=== PATIENT | female | born 1970 | race Caucasian/White ===

== ENCOUNTER → 2018-07-10 | Outpatient (CLI) | payer MEDICAID ==
--- NOTE | 2018-07-10 14:40 | XR ---
Lumbosacral spine HISTORY: Sprain, pain 5 views of the lumbosacral spine and 6 images There is multilevel spondylosis. Rudimentary ribs present at T12. No evident spondylolysis or spondyl olisthesis. Loss of disc height present at the intervertebral levels. Sclerosis present in the production planning supervisor ior elements of the lower lumbar spine. IMPRESSION: Degenerative disc disease and facet arthropathy.
== END ==
LOC: RADXRMAIN 13:08
PROVIDERS: ATTEND Family Medicine
DX: M51.17 Intervertebral disc disorders with radiculopathy, lumbosacral region (principal); M46.97 Unspecified inflammatory spondylopathy, lumbosacral region
CPT/HCPCS: 72110

== ENCOUNTER → 2020-10-04 | Outpatient (CLI) | payer MEDICAID ==
--- NOTE | 2020-10-04 08:52 | US ---
EXAMINATION TYPE: US thyroid st tissue head/neck DATE OF EXAM: 10/04/2020 COMPARISON: NONE CLINICAL HISTORY: E05.90 hyperthyroidism. Grave's Disease, hyperthyroidism GLAND SIZE: Right Lobe: 4.6 x 1.8 x 2.0 cm Overall Parenchyma: homogenous Left Lobe: 4.0 x 1.5 x 1.6 cm Overall Parenchyma: homogeneous Isthmus Thickness: 0.5 cm NODULES RIGHT: # of nodules measured on right: 1 1. 0.9 X 1.0 x 0.8 cm cystic or almost completely cystic, anechoic nodule, which is taller than wid e, with lobulated or irregular margins, without echogenic foci. Prior size: no prior LEFT: # of nodules measured on left: 0 ISTHMUS: # of nodules measured in the isthmus: 0 Bilateral neck scanned, no evidence of lymphadenopathy. IMPRESSION: Nonspecific cystic nodule right thyroid lobe.
== END | disposition home or self-care (01) ==
LOC: RADUSWWP 08:06
PROVIDERS: ATTEND Internal Medicine
DX: E04.1 Nontoxic single thyroid nodule (principal); E05.90 Thyrotoxicosis, unspecified without thyrotoxic crisis or storm
CPT/HCPCS: 76536

== ENCOUNTER → 2021-03-19 | Outpatient (CLI) | payer MEDICAID ==
--- NOTE | 2021-03-22 08:39 | MM ---
Reason for exam: screening (asymptomatic). Baseline mammogram. History: Patient is postmenopausal. Physical Findings: Nurse did not find any significant physical abnormalities on exam. MG 3D Screening Mammo W/Cad Bilateral CC and MLO view(s) were taken. The breast tissue is heterogeneously dense. This may lower the sensitivity of mammography. No significant findings. ASSESSMENT: Benign, BI-RAD 2 RECOMMENDATION: Routine screening mammogram of both breasts in 1 year.
== END | disposition home or self-care (01) ==
LOC: RADMAMWWP 07:00
PROVIDERS: ATTEND Family Medicine
DX: Z12.31 Encounter for screening mammogram for malignant neoplasm of breast (principal)
CPT/HCPCS: 77063; 77067

== ENCOUNTER → 2021-07-13 | Outpatient (CLI) | payer MEDICAID, OTHER | END | disposition home or self-care (01) | LOC: LABWHC1 09:52 | PROVIDERS: ATTEND Emergency Medicine | DX: Z20.822 Contact with and (suspected) exposure to COVID-19 (principal) | CPT/HCPCS: 87635 ==

== ENCOUNTER → 2021-07-14 | Outpatient (CLI) | payer MEDICAID, OTHER | END | disposition home or self-care (01) | LOC: LABWHC1 10:25 | PROVIDERS: ATTEND Emergency Medicine | DX: Z20.822 Contact with and (suspected) exposure to COVID-19 (principal) | CPT/HCPCS: 87635 ==

== ENCOUNTER → 2021-12-12 | Outpatient (CLI) | payer MEDICAID ==
--- NOTE | 2021-12-12 13:59 | US ---
EXAMINATION TYPE: US thyroid st tissue head/neck DATE OF EXAM: 12/12/2021 COMPARISON: US 2019 CLINICAL HISTORY: E04.1 Right thyroid nodule. Thyroid nodule, patient on thyroid meds GLAND SIZE: Right Lobe: 5.1 x 1.5 x 2.0 cm Overall Parenchyma: homogenous Left Lobe: 4.2 x 1.5 x 1.3 cm Overall Parenchyma: homogeneous Isthmus Thickness: 0.4 cm NODULES RIGHT: # of nodules measured on right: 1 1. 1.0 X 1.1 x 1.1 cm, lower lateral, cyst with 0.4cm hyperechoic area, which is wider than tall, w ith smooth margins, without echogenic foci. Prior size: 0.9 x 1.0 x 0.8 cm LEFT: # of nodules measured on left: 0 ISTHMUS: # of nodules measured in the isthmus: 0 Bilateral neck scanned, no evidence of lymphadenopathy. IMPRESSION: Nonspecific lesion right thyroid lobe
== END | disposition home or self-care (01) ==
LOC: RADUSWWP 12:50
PROVIDERS: ATTEND Internal Medicine
DX: E04.1 Nontoxic single thyroid nodule (principal)
CPT/HCPCS: 76536

== ENCOUNTER → 2022-04-09 | Outpatient (CLI) | payer MEDICAID ==
--- NOTE | 2022-04-11 07:29 | MM ---
Reason for Exam: Screening (asymptomatic). Last screening mammogram was performed 12 month(s) ago. Patient History: Menarche at age 11. First Full-Term at age 26. Postmenopausal. Risk Values: Sana 5 year model risk: 1.2%. NCI Lifetime model risk: 9.6%. Prior Study Comparison: 03/19/2021 Bilateral Screening Mammogram, [facility]. Tissue Density: The breast tissue is heterogeneously dense. This may lower the sensitivity of mammography. Findings: Analyzed By CAD. No suspicious groups of microcalcifications, spiculated or lobular masses, architectural distortion or other secondary signs of malignancy are mammographically apparent. Overall Assessment: Benign, BI-RAD 2 Management: Screening Mammogram of both breasts in 1 year. A negative mammogram report should not preclude additional follow up of suspicious palpable abnormalities. Patient should continue monthly self breast exam. A clinical breast exam by your physician is recommended on an annual basis and results should be correlated with mammographic findings. Electronically signed and approved by: Tevin Venegas D.O. Radiologis
== END | disposition home or self-care (01) ==
LOC: RADMAMWWP 07:13
PROVIDERS: ATTEND Family Medicine
DX: Z12.31 Encounter for screening mammogram for malignant neoplasm of breast (principal)
CPT/HCPCS: 77063; 77067

== ENCOUNTER → 2023-05-07 | Outpatient (CLI) | payer MEDICAID ==
--- NOTE | 2023-05-20 12:22 | MM ---
Reason for Exam: Screening (asymptomatic). Last mammogram was performed 1 year(s) and 1 month(s) ago. Patient History: Menarche at age 11. First Full-Term at age 26. Postmenopausal. Risk Values: Sana 5 year model risk: 1.2%. NCI Lifetime model risk: 9.4%. Prior Study Comparison: 03/19/2021 Bilateral Screening Mammogram, [facility]. 04/09/2022 Bilateral MG 3D screening mammo w/cad, [facility]. Tissue Density: The breast tissue is heterogeneously dense. This may lower the sensitivity of mammography. Findings: Analyzed By CAD. There is no suspicious group of microcalcifications or new suspicious mass in either breast. Overall Assessment: Negative, BI-RAD 1 Management: Screening Mammogram of both breasts in [address] [facility] will attempt to contact patient to return for supplemental views and ultrasound if indicated. Patient should continue monthly self-breast exams. A clinical breast exam by your physician is recommended on an annual basis. This exam should not preclude additional follow-up of suspicious palpable abnormalities. Note on Sana scores and lifetime risk: 1. A Sana score greater than 3% is considered moderate risk. If this is the case, consider specialist referral to assess eligibility for a risk reducing agent. 2. If overall lifetime risk for the development of breast cancer is 20% or higher, the patient may qualify for future screening with alternating mammogram and breast MRI. Electronically signed and approved by: Iam Rojas DO
== END | disposition home or self-care (01) ==
LOC: RADMAMWWP 12:57
PROVIDERS: ATTEND Family Medicine
DX: Z12.31 Encounter for screening mammogram for malignant neoplasm of breast (principal); Z78.0 Asymptomatic menopausal state
CPT/HCPCS: 77063; 77067

== ENCOUNTER 2024-02-07 10:46 | Inpatient (IN) | payer BC ==
--- NOTE | 2024-02-07 11:20 | ED ---
General Adult HPI - General Chief complaint: Shortness of Breath Stated complaint: SOB Time Seen by Provider: 02/07/24 10:58 Source: patient, RN notes reviewed Mode of arrival: ambulatory Limitations: no limitations - History of Present Illness Initial comments: Patient is a pleasant 53-year-old female present to the emergency department with concerns for exertional dyspnea. Onset of symptoms was around a month ago. Symptoms are with exertion. Patient is currently symptom-free. Patient does not have associated chest discomfort. No congestion or upper respiratory symptoms. No fever. No leg edema or calf pain. No history of similar symptoms previously. - Related Data Home Medications Medication Instructions Recorded Confirmed Albuterol Inhaler [Ventolin Hfa 2 puff INHALATION RT-Q4H PRN 02/07/24 02/07/24 Inhaler] Cetirizine HCl [Zyrtec] 10 mg PO HS 02/07/24 02/07/24 Cyclobenzaprine [Flexeril] 10 mg PO Q8H PRN 02/07/24 02/07/24 Montelukast [Singulair] 10 mg PO DAILY 02/07/24 02/07/24 Allergies Allergy/AdvReac Type Severity Reaction Status Date / Time [place] And Derivatives Allergy Rash/Hives Verified 02/07/24 12:08 [[place]] strawberry Allergy Rash/Hives Verified 02/07/24 12:08 Review of Systems ROS Statement: Those systems with pertinent positive or pertinent negative responses have been documented in the HPI. ROS Other: All systems not noted in ROS Statement are negative. Constitutional: Denies: fever Eyes: Denies: eye pain ENT: Denies: ear pain Respiratory: Reports: as per HPI. Denies: cough Cardiovascular: Reports: dyspnea on exertion Endocrine: Denies: fatigue Gastrointestinal: Denies: abdominal pain Genitourinary: Denies: dysuria Musculoskeletal: Denies: back pain Past Medical History Additional Past Medical History / Comment(s): Back History of Any Multi-Drug Resistant Organisms: None Reported Past Surgical History: No Surgical Hx Reported Past Psychological History: No Psychological Hx Reported Smoking Status: Never smoker Past Alcohol Use History: None Reported Past Drug Use History: None Reported General Exam Limitations: no limitations General appearance: alert, in no apparent distress Head exam: Present: normocephalic Eye exam: Present: normal appearance Neck exam: Present: normal inspection Respiratory exam: Present: normal lung sounds bilaterally. Absent: chest wall tenderness Cardiovascular Exam: Present: regular rate, normal rhythm Expanded Peripheral pulses: 2+: Radial (R), Radial (L), Posterior Tibialis (R), Posterior Tibialis (L) GI/Abdominal exam: Present: soft. Absent: tenderness Extremities exam: Present: normal inspection. Absent: pedal edema, calf tenderness Neurological exam: Present: alert Psychiatric exam: Present: normal affect, normal mood Skin exam: Present: normal color Course Vital Signs 02/07/24 02/07/24 02/07/24 10:53 10:58 11:12 Temperature 98.4 F 98.9 F Pulse Rate 110 H 106 H Respiratory 22 18 20 Rate Blood Pressure 138/76 140/91 O2 Sat by Pulse 97 95 Oximetry 02/07/24 02/07/24 12:02 13:02 Temperature 97.8 F Pulse Rate 101 H 97 Respiratory 19 18 Rate Blood Pressure 118/87 134/84 O2 Sat by Pulse 94 L 94 L Oximetry EKG Findings - EKG Results: EKG: interpreted by ERMD (Nonspecific T waves), sinus rhythm, normal axis, normal QRS EKG shows: tachycardia Medical Decision Making - Medical Decision Making Was pt. sent in by a medical professional or institution (, PA, FISCAL ANALYST, urgent care, hospital, or senior living...) When possible be specific @ -Patient was sent over from urgent care Did you speak to anyone other than the patient for history (EMS, parent, family, police, friend...)? What history was obtained from this source @ -No Did you review nursing and triage notes (agree or disagree)? Why? @ -I reviewed and agree with nursing and triage notes Were old charts reviewed (outside hosp., previous admission, EMS record, old EKG, old radiological studies, urgent care reports/EKG's, senior living records)? Report findings @ -Chest x-ray reviewed from urgent care shows cardiomegaly however this was limited as it was seen on the patient's for Differential Diagnosis (chest pain, altered mental status, abdominal pain women, abdominal pain men, vaginal bleeding, weakness, fever, dyspnea, syncope, headache, dizziness, GI bleed, back pain, seizure, CVA, palpatations, mental health, musculoskeletal)? @ -Differential Dyspnea: Coronary syndrome, arrhythmia, tamponade, asthma, COPD, pulmonary embolism, pneumonia, pneumothorax, pulmonary effusion, anaphylaxis, diabetic ketoacidosis, flailed chest, pulmonary contusion, diaphragmatic rupture, anemia, neuromuscular, this is not meant to be an all-inclusive list. EKG interpreted by me (3pts min.). @ -As above X-rays interpreted by me (1pt min.). @ -Chest x-ray shows some cephalization and cardiomegaly CT interpreted by me (1pt min.). @ -The scan without obvious pulmonary embolism. There is concern for CHF and pulmonary arterial hypertension U/S interpreted by me (1pt. min.). @ -None done What testing was considered but not performed or refused? (CT, X-rays, U/S, labs)? Why? @ -None What meds were considered but not given or refused? Why? @ -None Did you discuss the management of the patient with other professionals (professionals i.e. , PA, FISCAL ANALYST, lab, RT, psych nurse, social science professor, website developer, teacher, bsa/aml compliance officer, test case developer)? Give summary @ -Case discussed with Dr. Clark who will admit covering Dr. Tilley Was smoking cessation discussed for >3mins.? @ -No Was critical care preformed (if so, how long)? @ -No Were there social determinants of health that impacted care today? How? (Homelessness, low income, unemployed, alcoholism, drug addiction, transportation, low edu. Level, literacy, decrease access to med. care, custodial, rehab)? @ -No Was there de-escalation of care discussed even if they declined (Discuss DNR or withdrawal of care, Hospice)? DNR status @ -No What co-morbidities impacted this encounter? (DM, HTN, Smoking, COPD, CAD, Cancer, CVA, ARF, Chemo, Hep., AIDS, mental health diagnosis, sleep apnea, morbid obesity)? @ -None Was patient admitted / discharged? Hospital course, mention meds given and route, prescriptions, significant lab abnormalities, going to OR and other perti nent info. @ -Patient presents with exertional dyspnea. Patient does have new onset CHF. Patient will be admitted with cardiac consult Undiagnosed new problem with uncertain prognosis? @ -No Drug Therapy requiring intensive monitoring for toxicity (Heparin, Nitro, Insulin, Cardizem)? @ -No Were any procedures done? @ -No Diagnosis/symptom? @ -CHF Acute, or Chronic, or Acute on Chronic? @ -Acute Uncomplicated (without systemic symptoms) or Complicated (systemic symptoms)? @ -Default Side effects of treatment? @ -No Exacerbation, Progression, or Severe Exacerbation? @ -New onset with progression Poses a threat to life or bodily function? How? (Chest pain, [place], [place], pneumonia, PE, COPD, DKA, ARF, appy, cholecystitis, CVA, Diverticulitis, Homicidal, Suicidal, threat to staff... and all critical care pts) @ -No - Lab Data Result diagrams: 02/07/24 11:18 02/07/24 11:18 Lab Results 02/07/24 02/07/24 02/07/24 Range/Units 11:18 11:18 11:18 WBC 7.8 (3.8-10.6) k/uL RBC 4.79 (3.80-5.40) m/uL Hgb 13.8 (11.4-16.0) gm/dL Hct 42.3 (34.0-46.0) % MCV 88.3 (80.0-100.0) fL MCH 28.8 (25.0-35.0) pg MCHC 32.6 (31.0-37.0) g/dL RDW 14.3 (11.5-15.5) % Plt Count 231 (150-450) k/uL MPV 8.3 Neutrophils % 74 % Lymphocytes % 16 % Monocytes % 7 % Eosinophils % 2 % Basophils % 1 % Neutrophils # 5.7 (1.3-7.7) k/uL Lymphocytes # 1.2 (1.0-4.8) k/uL Monocytes # 0.5 (0-1.0) k/uL Eosinophils # 0.1 (0-0.7) k/uL Basophils # 0.1 (0-0.2) k/uL PT 10.0 (10.0-12.5) sec INR 0.9 (<1.2) APTT 23.7 (22.0-30.0) sec D-Dimer 1.12 H (<0.60) mg/L FEU Sodium 141 (137-145) mmol/L Potassium 4.6 (3.5-5.1) mmol/L Chloride 108 H (98-107) mmol/L Carbon Dioxide 22 (22-30) mmol/L Anion Gap 11 mmol/L BUN 15 (7-17) mg/dL Creatinine 0.74 (0.52-1.04) mg/dL Est GFR (CKD-EPI)AfAm >90 (>60 ml/min/1.73 sqM) Est GFR (CKD-EPI)NonAf >90 (>60 ml/min/1.73 sqM) Glucose 143 H (74-99) mg/dL Plasma Lactic Acid Nikita (0.7-2.0) mmol/L Calcium 9.4 (8.4-10.2) mg/dL Magnesium 1.9 (1.6-2.3) mg/dL Total Bilirubin 0.7 (0.2-1.3) mg/dL AST 26 (14-36) U/L ALT 22 (4-34) U/L Alkaline Phosphatase 70 (38-126) U/L Troponin I (0.000-0.034) ng/mL Total Protein 7.3 (6.3-8.2) g/dL Albumin 4.3 (3.5-5.0) g/dL Influenza Type A (PCR) (Not Detectd) Influenza Type B (PCR) (Not Detectd) RSV (PCR) (Not Detectd) SARS-CoV-2 (PCR) (Not Detectd) 02/07/24 02/07/24 02/07/24 Range/Units 11:18 11:18 11:18 WBC (3.8-10.6) k/uL RBC (3.80-5.40) m/uL Hgb (11.4-16.0) gm/dL Hct (34.0-46.0) % MCV (80.0-100.0) fL MCH (25.0-35.0) pg MCHC (31.0-37.0) g/dL RDW (11.5-15.5) % Plt Count (150-450) k/uL MPV Neutrophils % % Lymphocytes % % Monocytes % % Eosinophils % % Basophils % % Neutrophils # (1.3-7.7) k/uL Lymphocytes # (1.0-4.8) k/uL Monocytes # (0-1.0) k/uL Eosinophils # (0-0.7) k/uL Basophils # (0-0.2) k/uL PT (10.0-12.5) sec INR (<1.2) APTT (22.0-30.0) sec D-Dimer (<0.60) mg/L FEU Sodium (137-145) mmol/L Potassium (3.5-5.1) mmol/L Chloride (98-107) mmol/L Carbon Dioxide (22-30) mmol/L Anion Gap mmol/L BUN (7-17) mg/dL Creatinine (0.52-1.04) mg/dL Est GFR (CKD-EPI)AfAm (>60 ml/min/1.73 sqM) Est GFR (CKD-EPI)NonAf (>60 ml/min/1.73 sqM) Glucose (74-99) mg/dL Plasma Lactic Acid [place]ita 1.1 (0.7-2.0) mmol/L Calcium (8.4-10.2) mg/dL Magnesium (1.6-2.3) mg/dL Total Bilirubin (0.2-1.3) mg/dL AST (14-36) U/L ALT (4-34) U/L Alkaline Phosphatase (38-126) U/L Troponin I <0.012 (0.000-0.034) ng/mL Total Protein (6.3-8.2) g/dL Albumin (3.5-5.0) g/dL Influenza Type A (PCR) Not Detected (Not Detectd) Influenza Type B (PCR) Not Detected (Not Detectd) RSV (PCR) Not Detected (Not Detectd) SARS-CoV-2 (PCR) Not Detected (Not Detectd) Disposition Clinical Impression: Congestive heart failure Disposition: ADMITTED IP TO THIS HOSP Is patient prescribed a controlled substance at d/c from ED?: No Referrals: Ruth Winston MD [Primary Care Provider] - 1-2 days Time of Disposition: 14:03
[2024-02-07 11:45] LABS: Basophils # (A) 0.1 k/uL (0-0.2); Basophils % (A) 1 %; Eosinophils # (A) 0.1 k/uL (0-0.7); Eosinophils % (A) 2 %; HCT 42.3 % (34.0-46.0); HGB 13.8 gm/dL (11.4-16.0); Lymphocytes # (A) 1.2 k/uL (1.0-4.8); Lymphocytes % (A) 16 %; MCH 28.8 pg (25.0-35.0); MCHC 32.6 g/dL (31.0-37.0); MCV 88.3 fL (80.0-100.0); Mean Platelet Volume 8.3; Monocytes # (A) 0.5 k/uL (0-1.0); Monocytes % (A) 7 %; Neutrophils # (A) 5.7 k/uL (1.3-7.7); Neutrophils % (A) 74 %; Platelet Count 231 k/uL (150-450); RBC 4.79 m/uL (3.80-5.40); RDW 14.3 % (11.5-15.5); WBC 7.8 k/uL (3.8-10.6)
--- NOTE | 2024-02-07 11:54 | XR ---
EXAMINATION TYPE: XR chest 2V DATE OF EXAM: 02/07/2024 COMPARISON: None HISTORY: 53 year-old female shortness of breath, difficulty breathing TECHNIQUE: PA and lateral views FINDINGS: Heart mildly enlarged. Interstitial/vascular density. No pleural effusion. IMPRESSION: Mild cardiomegaly with interstitial density, possible CHF and pulmonary vascular congestion.
[2024-02-07 11:59] LABS: ALT 22 U/L (4-34); AST 26 U/L (14-36); African American GFR (CKD) >90 (>60 ml/min/1.73 sqM); Albumin 4.3 g/dL (3.5-5.0); Alkaline Phosphatase 70 U/L (38-126); Anion Gap 11 mmol/L; Blood Urea Nitrogen 15 mg/dL (7-17); Calcium 9.4 mg/dL (8.4-10.2); Carbon Dioxide 22 mmol/L (22-30); Chloride 108 mmol/L (98-107); Glucose 143 mg/dL (74-99); Magnesium 1.9 mg/dL (1.6-2.3); Non-African American GFR(CKD) >90 (>60 ml/min/1.73 sqM); Sodium 141 mmol/L (137-145); Total Bilirubin 0.7 mg/dL (0.2-1.3); Total Protein 7.3 g/dL (6.3-8.2)
[2024-02-07 12:02] LABS: Potassium 4.6 mmol/L (3.5-5.1)
[2024-02-07 12:12] LABS: INR 0.9 (<1.2); Partial Thromboplastin Time 23.7 sec (22.0-30.0)
--- NOTE | 2024-02-07 13:49 | CT ---
EXAMINATION TYPE: CT angio chest DATE OF EXAM: 02/07/2024 COMPARISON: 02/07/2024 HISTORY: 53 year-old female shortness of breath, dyspnea TECHNIQUE: Contiguous axial scanning of the chest after the administration of 100ml mL of Isovue 370. Coronal/sagittal MIP reconstructions performed. CT DLP: 564.4mGycm. Automatic exposure control utilized for a dose reduction. FINDINGS: The heart is borderline enlarged. Left ventricular dilatation. No pericardial effusion. No flattening of the interventricular septum. Trace reflux of contrast into the hepatic veins. Aorta normal caliber with conventional branching anatomy. No thoracic lymphadenopathy by CT size criteria. Satisfactory opacification of the pulmonary system. Portal and caliber main right and left pulmonary arteries measuring up to 2.6 cm may reflect underlying pulmonary hypertension. No evidence for pulmon jhon embolus. Mild diffuse bronchial wall thickening. 4 mm right middle lobe pulmonary nodule, axial image 69 in the recess to 12 months per Fleischner cri teria. Septal lines in the lower lungs with mild groundglass. Bandlike atelectasis periphery of the l eft base. Otherwise, no consolidation or pleural effusion. Visualized upper abdomen shows no gross abnormality. Bones: DISH lower thoracic spine. Tiny sternal foramen, normal variant. IMPRESSION: 1. No evidence for pulmonary embolus. 2. Left-sided cardiac enlargement with pulmonary arterial hypertension and lower lung septal lines. C orrelate for mild CHF with pulmonary vascular congestion.
[2024-02-07] MEDS ORDERED: ALBUTEROL NEBULIZED 2.5 MG/3 ML INHALATION PRN (14:05)
[2024-02-07] MEDS: NITROGLYCERIN OINT 1 INCH/GM PACKET TOPICAL SCH (14:53)
[2024-02-07] MEDS: ASPIRIN 325 MG TAB PO STA (14:53)
[2024-02-07] MEDS: FUROSEMIDE 10 MG/ML 4 ML VIAL IV SCH (14:54)
--- NOTE | 2024-02-07 17:45 | P.HPIM ---
History of Present Illness H&P Date: 02/07/24 Patient is a 53-year-old female with history of asthma presenting with shortness of breath. She claims that her shortness of breath started worsening 1 week ago when she started noticing increased dyspnea with exertion. She has also been noticing some orthopnea, denies any PND. She denies any lower extremity swelling, any fevers, chills, abdominal pain, nausea, vomiting, urinary or bowel complaints. She denies any travel history or recent sick contacts. She denies smoking, alcohol use, or illicit drug use. In the ED, temperature was 98.4, pulse 110, respiratory rate 22, blood pressure 138/76, saturating 97% room air. EKG showed sinus tachycardia, chest x-ray shows interstitial opacities bilaterally. Chest CTA shows no evidence of PE, left-sided cardiac enlargement with pulmonary arterial hypertension and lower lung septal lines concerning for CHF. CBC unremarkable, D-dimer 1.12, potassium 4.6, creatinine 0.74, lactate 1.1, troponin negative x 2, proBNP 1700. Respirat ory viral panel negative. Patient being admitted for CHF exacerbation. Cardiology consulted. Pertinent positives and negatives as discussed in HPI, a complete review of systems was performed and all other systems are negative. Patient seen and examined at bedside. Vital signs reviewed General: nontoxic, no distress, appears at stated age Derm: warm, dry Head: atraumatic, normocephalic, symmetric Eyes: EOMI, no lid lag, anicteric sclera, pupils equal round reactive to light ENT: Nose and ears atraumatic Neck: No thyromegaly, supple Mouth: no lip lesion, mucus membranes moist Cardiovascular: S1S2 reg, no murmur, trace peripheral edema Lungs: bibasilar rales, no wheeze, no accessory muscle use Abdominal: soft, nontender to palpation, no guarding, no appreciable organomegaly Ext: no gross muscle atrophy, muscle strength muscle strength 5 out of 5 in all 4 extremities, no contractures Neuro: CN II-XII grossly intact Psych: Alert, oriented, appropriate affect Assessment/Plan: Active: Acute CHF exacerbation, unknown EF - Started on Lasix 40 IV every 8 hours, monitor electrolytes and renal function - Continue telemetry, repeat troponin - On aspirin 81 mg daily, also is on 0.5 inch topical nitroglycerin every 6 hours - Intake and output, daily weight - Cardiology consulted, pending recommendations - Echocardiogram pending Chronic: Asthma, not in exacerbation The patient is admitted with an anticipated less than 2 midnight stay as observation status for evaluation of CHF exacerbation. Surrogate decision-maker: Sibling CODE STATUS: Full code DVT prophylaxis: Subcu heparin Anticipated discharge date: Pending clinical course Anticipated discharge place: Pending clinical course A total of 55 minutes was spent on the care of this complex patient more than 50% of the time was spent in counseling and care coordination. Past Medical History Additional Past Medical History / Comment(s): Back History of Any Multi-Drug Resistant Organisms: None Reported Past Surgical History: No Surgical Hx Reported Past Psychological History: No Psychological Hx Reported Smoking Status: Never smoker Past Alcohol Use History: None Reported Past Drug Use History: None Reported Medications and Allergies Home Medications Medication Instructions Recorded Confirmed Type Albuterol Inhaler [Ventolin Hfa 2 puff INHALATION RT-Q4H PRN 02/07/24 02/07/24 History Inhaler] Cetirizine HCl [Zyrtec] 10 mg PO HS 02/07/24 02/07/24 History Cyclobenzaprine [Flexeril] 10 mg PO Q8H PRN 02/07/24 02/07/24 History Montelukast [Singulair] 10 mg PO DAILY 02/07/24 02/07/24 History Allergies Allergy/AdvReac Type Severity Reaction Status Date / Time [place] And Derivatives Allergy Rash/Hives Verified 02/07/24 12:08 [[place]] strawberry Allergy Rash/Hives Verified 02/07/24 12:08 Physical Exam Vitals: Vital Signs Temp Pulse Resp BP Pulse Ox 02/07/24 17:10 80 19 130/85 95 02/07/24 16:00 98.2 F 96 18 138/84 95 02/07/24 15:02 96 19 144/101 95 02/07/24 14:52 102 H 18 134/102 96 02/07/24 14:17 98 17 153/95 95 02/07/24 13:02 97.8 F 97 18 134/84 94 L 02/07/24 12:02 101 H 19 118/87 94 L 02/07/24 11:12 98.9 F 106 H 20 140/91 95 02/07/24 10:58 18 02/07/24 10:53 98.4 F 110 H 22 138/76 97 Intake and Output 02/07/24 02/07/24 02/07/24 06:59 14:59 22:59 Other: Weight 112.491 kg Results CBC & Chem 7: 02/07/24 11:18 02/07/24 11:18 Labs: Abnormal Lab Results - Last 24 Hours (Table) 02/07/24 02/07/24 Range/Units 11:18 11:18 D-Dimer 1.12 H (<0.60) mg/L FEU Chloride 108 H (98-107) mmol/L Glucose 143 H (74-99) mg/dL
[2024-02-07] MEDS: ACETAMINOPHEN TAB 325 MG TAB PO PRN (20:59)
[2024-02-07] MEDS: LORATADINE 10 MG TAB PO SCH (21:00)
[2024-02-08] MEDS: CYCLOBENZAPRINE 10 MG TAB PO PRN (00:58)
[2024-02-08 06:15] LABS: African American GFR (CKD) 89 (>60 ml/min/1.73 sqM); Anion Gap 8 mmol/L; Blood Urea Nitrogen 16 mg/dL (7-17); Calcium 9.2 mg/dL (8.4-10.2); Carbon Dioxide 32 mmol/L (22-30); Chloride 99 mmol/L (98-107); Glucose 114 mg/dL (74-99); Magnesium 2.2 mg/dL (1.6-2.3); Non-African American GFR(CKD) 77 (>60 ml/min/1.73 sqM); Sodium 139 mmol/L (137-145)
[2024-02-08] MEDS: ASPIRIN 81 MG PO SCH (08:53)
[2024-02-08] MEDS: MONTELUKAST 10 MG TAB PO SCH (08:53)
[2024-02-08] MEDS ORDERED: ASPIRIN 325 MG TAB PO SCH (09:00)
[2024-02-08] MEDS: METOPROLOL SUCCINATE (ER) 25 MG TAB.ER.24H PO SCH (11:57)
[2024-02-08] MEDS: LOSARTAN 25 MG TAB PO SCH (11:57)
--- NOTE | 2024-02-08 13:34 | P.PN ---
Subjective Progress Note Date: 02/08/24 Hospital Course: 53-year-old female with history of asthma presenting with shortness of breath. In the ED, temperature was 98.4, pulse 110, respiratory rate 22, blood pressure 138/76, saturating 97% room air. EKG showed sinus tachycardia, chest x-ray shows interstitial opacities bilaterally. Chest CTA shows no evidence of PE, left-sided cardiac enlargement with pulmonary arterial hypertension and lower lung septal lines concerning for CHF. CBC unremarkable, D-dimer 1.12, potassium 4.6, creatinine 0.74, lactate 1.1, troponin negative x 2, proBNP 1700. Respiratory viral panel negative. Patient being admitted for CHF exacerbation. Cardiology consulted. Patient improving with IV diuresis. Echo and stress test pending Subjective: Patient seen and examined at bedside. No acute events overnight. Claims that orthopnea is better Pertinent positives and negatives as discussed above, a complete review of systems was performed and all other systems are negative. Vitals Signs Reviewed. General: Nontoxic, no distress, appears at stated age Derm: Warm, dry Head: Atraumatic, normocephalic, symmetric Eyes: EOMI, no lid lag, anicteric sclera Mouth: No lip lesion, mucus membranes moist Cardiovascular: S1S2 reg, no murmur Lungs: CTA bilateral, no rhonchi, no rales, no accessory muscle use Abdominal: Soft, nontender to palpation, no guarding, no appreciable organomegaly Ext: No gross muscle atrophy, no edema, no contractures Neuro: CN II-XI grossly intact, no focal neuro deficits Psych: Alert, oriented, appropriate affect Data Reviewed Today: Pertinent Labs: Potassium 4, magnesium 2.2, creatinine 0.86, troponin negative x 3 Imaging: No new imaging Assessment and Plan: Acute CHF exacerbation, unknown EF - on Lasix 40 IV every 8 hours, monitor electrolytes and renal function - Continue telemetry - On aspirin 81 mg daily, also is on 0.5 inch topical nitroglycerin every 6 hours - Intake and output, daily weight - Cardiology consulted, pending recommendations, started on losartan 25 daily, metoprolol 25 daily - Echocardiogram pending - Stress pending Chronic: Asthma, not in exacerbation DVT ppx: Lovenox Code status: Full code Anticipated discharge place: Home Anticipated discharge time: Likely tomorrow Objective - Vital Signs Vital signs: Vital Signs Temp 98.7 F 02/07/24 18:10 Pulse 80 02/08/24 06:25 Resp 18 02/08/24 06:25 BP 117/86 02/08/24 06:25 Pulse Ox 98 02/08/24 06:25 FiO2 Intake & Output 02/07/24 02/08/24 02/08/24 18:59 06:59 18:59 Weight 112.491 kg - Labs CBC & Chem 7: 02/07/24 11:18 02/08/24 05:28 Labs: Abnormal Lab Results - Last 24 Hours (Table) 02/08/24 Range/Units 05:28 Carbon Dioxide 32 H (22-30) mmol/L Glucose 114 H (74-99) mg/dL
--- NOTE | 2024-02-08 20:50 | CONS ---
CONSULTATION CHIEF COMPLAINT: Shortness of breath. HISTORY OF PRESENT ILLNESS: Mari is a 53-year-old lady with no significant past medical history, who presented to hospital with progressively worsening shortness of breath for the last 1 to 2 weeks. The shortness of breath comes on without exertion and is relieved with rest. There is no history of leg edema, PND, or orthopnea. There is no history of coronary artery disease or prior congestive heart failure. On her initial presentation, the troponins have been negative. D-dimer is elevated, underwent a CT scan of the chest that revealed cardiomegaly with pulmonary arterial hypertension. BNP is elevated. Her clinical presentation is consistent with new onset congestive heart failure. An echocardiogram will establish whether it is systolic or diastolic. EKG shows extensive ST-T wave changes of unclear clinical significance. PAST MEDICAL HISTORY: Negative for hypertension, diabetes, or dyslipidemia. Significant for asthma. MEDICATIONS: Include; 1. Ventolin. 2. Zyrtec. 3. Flexeril. 4. Singulair. ALLERGIES: No known drug allergies. FAMILY HISTORY: Negative for premature coronary artery disease. SOCIAL HISTORY: Negative for current smoking, EtOH abuse, or drug abuse. REVIEW OF SYSTEMS: review of systems has been performed. Pertinents are as documented. PHYSICAL EXAMINATION: GENERAL: Comfortable at rest. VITAL SIGNS: Stable. NECK: There is no jugular venous distention. Carotid upstroke is normal. There is no bruit. CHEST: Reveals good air entry bilaterally. HEART: Reveals first and second heart sounds. No gallop. No murmur. ABDOMEN: Soft, nontender. EXTREMITIES: Did not reveal any edema. Peripheral pulses are felt. ASSESSMENT: 1. New onset congestive heart failure. 2. Abnormal EKG. PLAN: I will continue the patient on IV Lasix. Obtain a 2D echo in the morning to evaluate her LV function. Start the patient on SENG inhibitors and beta-blockers and schedule her for a Lexiscan. I reviewed all the workup so far including the CAT scans, x-rays, and lab tests. MMODL / IJN: [id number] /
[2024-02-09] MEDS ORDERED: CAFFEINE CITRATE 60 MG/3 ML VIAL IV PRN (06:00)
[2024-02-09] MEDS ORDERED: REGADENOSON 0.4 MG/5 ML SYRINGE IV PRN (06:00)
[2024-02-09] MEDS ORDERED: AMINOPHYLLINE 500 MG/20 ML VIAL IV PRN (07:00)
[2024-02-09 09:31] LABS: African American GFR (CKD) 72 (>60 ml/min/1.73 sqM); Anion Gap 9 mmol/L; Blood Urea Nitrogen 23 mg/dL (7-17); Calcium 9.1 mg/dL (8.4-10.2); Carbon Dioxide 30 mmol/L (22-30); Chloride 101 mmol/L (98-107); Glucose 117 mg/dL (74-99); Magnesium 2.3 mg/dL (1.6-2.3); Non-African American GFR(CKD) 63 (>60 ml/min/1.73 sqM); Potassium 4.3 mmol/L (3.5-5.1); Sodium 140 mmol/L (137-145)
[2024-02-09] MEDS: polyethylene glycoL 3350 17 GM POWD.PACK PO SCH (11:10)
[2024-02-09] MEDS: ENOXAPARIN 40 MG/0.4 ML SYRINGE SQ SCH (11:13)
--- NOTE | 2024-02-09 13:25 | NM ---
EXAMINATION TYPE: NM stress lexiscan cardiolite DATE OF EXAM: 02/09/2024 COMPARISON: NONE CLINICAL INDICATION: Female, 53 years old with history of CHF; TECHNIQUE: After the intravenous administration of 9.3 mCi Tc 99m Sestamibi - Cardiolite resting SPE CT images acquired 45 minutes post injection. The patient received 0.4mg Lexiscan, 26.1 mCi Tc 99m Sestamibi - Stress images obtained [address] injection FINDINGS: Review of stress and rest SPECT images demonstrates no distinct perfusion abnormality. Gated analysi s shows global reduced wall motion with an estimated left ventricular ejection fraction of 13 %. IMPRESSION: 1. Abnormal ejection fraction of 13%. 2. Diminished uptake involving the anterior wall appears predominantly fixed. No definite findings of sizable stress-induced area of reversible ischemia. Tiny area of reversibility involving the apex o r anterior wall not entirely excluded.
--- NOTE | 2024-02-09 13:42 | CA ---
Lexiscan Nuclear Stress Test Report Name: Mari Orellana Exam Date: 02/09/2024 09:31 Exam Location: [facility] Stress Ht (in): 66 Wt (lb): 248 BSA: 2.19 Ordering Phys: Gumaro Patel MD Referring Phys: DOROTHEA,, Technologist: Jovanny Oropeza Age: 53 Gender: F : 1970 Procedure CPT: Indications: Reflex order-Stress test ICD-10 Codes: Patient History: DIFFICULTY IN BREATHING, ASTHMA Medications: Meds past 24 hrs: Pretest Chest Pain: STRESS TEST Lexiscan Protocol Exercise Duration (min:sec): 01:[address] Depressions (mm): Angina Score: Hernandez Score: Resting HR (bpm): 89 Peak HR (bpm): 103 Resting BP (mmHg): 129 / 76 Peak BP (mmHg): 129 / 76 MPHR: 166 Target HR: 141 % MPHR: 62 METS: 1.0 Total Dose: Peak Dose: Atropine: Double Product: 39023 BP Response: Stress Termination: INFUSION COMPLETE Stress Symptoms: CHEST TIGHTNESS Stress Summary: ECG ANALYSIS Resting ECG: Stress ECG: CONCLUSIONS Nondiagnostic stress test Dr. Carlos Eduardo Sanders MD (Electronically Signed) Final Date: 09 February 2024 13:42
--- NOTE | 2024-02-09 13:56 | CA ---
Transthoracic Echo Report Name: Mari Orellana Age: 53 Gender: F : 1970 Exam Date: 02/09/2024 09:52 Exam Location: [facility] Echo Ht (in): 66 Wt (lb): 248 Ordering Physician: Mario Beavers DO Attending/Referring Phys: [employer] Manager Liliana Love RDCS Procedure CPT: Indications: Heart failure Cardiac Hx: Technical Quality: Technically difficult study Contrast 1: Definity Total Dose (mL): 2 Contrast 2: Total Dose (mL): MEASUREMENTS (Male / Female) Normal Values 2D ECHO LV Diastolic Diameter PLAX 5.7 cm 4.2 - 5.9 / 3.9 - 5.3 cm LV Systolic Diameter PLAX 5.3 cm IVS Diastolic Thickness 1.0 cm 0.6 - 1.0 / 0.6 - 0.9 cm LVPW Diastolic Thickness 1.1 cm 0.6 - 1.0 / 0.6 - 0.9 cm LV Relative Wall Thickness 0.4 RV Internal Dim ED PLAX 3.2 cm LA Systolic Diameter LX 4.2 cm 3.0 - 4.0 / 2.7 - 3.8 cm LV Diastolic Volume MOD BP 88.9 cm??? 67 - 155 / 56 - 104 cm??? LV Systolic Volume MOD BP 74.2 cm??? 22 - 58 / 19 - 49 cm??? LV Ejection Fraction MOD BP 16.5 % >= 55 % LV Cardiac Index MOD BP 514.5 cm???/min???m??? LV Diastolic Volume MOD 4C 98.8 cm??? LV Systolic Volume MOD 4C 80.7 cm??? LV Ejection Fraction MOD 4C 18.4 % LV Cardiac Index MOD 4C 635.1 cm???/min???m??? LV Diastolic Length 4C 7.7 cm LV Systolic Length 4C 6.8 cm LV Diastolic Volume MOD 2C 76.4 cm??? LV Systolic Volume MOD 2C 66.2 cm??? LV Ejection Fraction MOD 2C 13.3 % LV Cardiac Index MOD 2C 356.2 cm???/min???m??? LV Diastolic Length 2C 7.3 cm LV Systolic Length 2C 6.5 cm M-MODE Aortic Root Diameter MM 3.1 cm LA Systolic Diameter MM 2.1 cm LA Ao Ratio MM 0.7 DOPPLER AV Peak Velocity 118.8 cm/s AV Peak Gradient 5.6 mmHg Mitral E Point Velocity 79.3 cm/s Mitral A Point Velocity 61.0 cm/s Mitral E to A Ratio 1.3 MV Deceleration Time 231.4 ms MV E' Velocity 3.8 cm/s Mitral E to MV E' Ratio 20.7 TR Peak Velocity 288.3 cm/s TR Peak Gradient 33.3 mmHg Right Ventricular Systolic Press 48.3 mmHg FINDINGS Left Ventricle Left ventricular ejection fraction is estimated at 30-35 %. Mildly increased septal wall thickness. Mildly increased posterior wall thickness. Mildly increased left ventricular diastolic diameter. Severely increased left ventricular systolic volume. Severely decreased left ventricular ejection fraction. Right Ventricle Normal right ventricular size. Moderate pulmonary hypertension. Right Atrium Normal right atrial size. Left Atrium Mildly increased left atrial diameter. Mitral Valve Structurally normal mitral valve. No evidence for mitral valve prolapse. No mitral stenosis. Mild mitral regurgitation. Aortic Valve Trileaflet aortic valve. No aortic valve stenosis or regurgitation. Tricuspid Valve Structurally normal tricuspid valve. Mild tricuspid regurgitation. Pulmonic Valve Structurally normal pulmonic valve. No pulmonic regurgitation. Pericardium No pericardial effusion. No pleural effusion. Aorta Normal size aortic root and proximal ascending aorta. CONCLUSIONS Severely impaired LV systolic function with an EF between 30-35% with global hypokinesia Previewed by: Dr. Carlos Eduardo Sanders MD (Electronically Signed) Final Date: 09 February 2024 13:55
--- NOTE | 2024-02-09 14:39 | P.PN ---
Subjective Progress Note Date: 02/09/24 History of present illness: This is a 53-year-old female with no significant past medical history presented to the hospital with shortness of breath for 1 to 2 weeks. Shortness of breath comes on with exertion and is relieved with rest. No lower extremity edema, PND, orthopnea. No history of coronary artery disease or prior CHF. D-dimer was elevated underwent CT of the chest that was negative for PE but revealed cardiomegaly and pulmonary artery hypertension. BNP was elevated. Patient presented with picture of new onset CHF. EKG revealed extensive ST-T wave changes of unclear significance. Patient has been started on IV Lasix, Toprol XL, losartan. Repeat lab work reveals sodium 139, potassium 4, BUN 16 creatinine 0.86. Echocardiogram reveals EF of 30 to 35% with global hypokinesia. Lexiscan Cardiolite stress test revealed abnormal ejection fraction of 13%. Diminished uptake involving the anterior wall appears predominantly fixed. No definite findings of sizable stress-induced areas of reversible ischemia. Tiny areas of reversibility involving the apex or anterior wall not entirely excluded. Physical examination: Gen: This is a obese 53-year-old female in no acute distress VS: reviewed, blood pressure 107/70, heart rate 78, pulse ox 97% on room air. HEENT: Head is atraumatic, normocephalic. Pupils equal, round. Sclerae is anicteric. LUNGS: Clear to auscultation. No wheezes or rhonchi. No intercostal retractions. HEART: Regular rate and rhythm. No murmur. EXTREMITIES: No pedal edema. No calf tenderness. NEUROLOGICAL: Patient is awake, alert and oriented x3. Assessment: New onset CHF, systolic Cardiomyopathy of unclear etiology, rule out ischemic cardiac disease Moderate pulmonary hypertension Plan: Continue patient on aspirin 81 mg daily, Lasix 40 mg IV every 8 hours, losartan 25 mg daily, Toprol-XL 25 mg daily Monitor JEFFRY, daily weights, electrolytes and renal function Patient will be scheduled for cardiac catheterization on Friday. Nurse practitioner note has been reviewed, I agree with documented findings and plan of care. Patient was seen and examined. Objective - Vital Signs Vital signs: Vital Signs Temp 98.4 F 02/09/24 06:30 Pulse 78 02/09/24 06:30 Resp 17 02/09/24 06:30 BP 107/70 02/09/24 06:30 Pulse Ox 97 02/09/24 06:30 FiO2 Intake & Output 02/08/24 02/09/24 02/09/24 18:59 06:59 18:59 Intake Total 1470 118 Output Total 1450 900 Balance 20 -782 Weight 112.491 kg 109.1 kg Intake: Oral 1470 118 Output: Urine 1450 900 Other: # Voids 1 - Labs CBC & Chem 7: 02/07/24 11:18 02/09/24 08:54
[2024-02-09] MEDS ORDERED: ALPRAZolam 0.25 MG TAB PO PRN (15:17)
[2024-02-09] MEDS ORDERED: ALPRAZolam 0.5 MG TAB PO PRN (15:17)
[2024-02-09] MEDS ORDERED: NITROGLYCERIN SL TABS 0.4 MG TAB SUBLINGUAL PRN (15:17)
[2024-02-09 15:19] VITALS: BMI 38.8
--- NOTE | 2024-02-09 15:57 | P.PN ---
Subjective Progress Note Date: 02/09/24 Hospital Course: 53-year-old female with history of asthma presenting with shortness of breath. In the ED, temperature was 98.4, pulse 110, respiratory rate 22, blood pressure 138/76, saturating 97% room air. EKG showed sinus tachycardia, chest x-ray shows interstitial opacities bilaterally. Chest CTA shows no evidence of PE, left-sided cardiac enlargement with pulmonary arterial hypertension and lower lung septal lines concerning for CHF. CBC unremarkable, D-dimer 1.12, potassium 4.6, creatinine 0.74, lactate 1.1, troponin negative x 2, proBNP 1700. Respiratory viral panel negative. Patient being admitted for CHF exacerbation. Cardiology consulted. Patient improving with IV diuresis. Echocardiogram shows reduced EF 30 to 35% with global hypokinesia. Lexiscan stress test showed abnormal EF of 13%, diminished uptake involving the anterior wall appears predominantly fixed. No definite findings of sizable stress- induced area of reversible ischemia, tiny area of reversibility involving the apex or anterior wall not entirely excluded. Pending cardiac cath on Friday Subjective: Patient seen and examined at bedside. No acute events overnight. Respiratory function better Pertinent positives and negatives as discussed above, a complete review of systems was performed and all other systems are negative. Vitals Signs Reviewed. General: Nontoxic, no distress, appears at stated age Derm: Warm, dry Head: Atraumatic, normocephalic, symmetric Eyes: EOMI, no lid lag, anicteric sclera Mouth: No lip lesion, mucus membranes moist Cardiovascular: S1S2 reg, no murmur Lungs: CTA bilateral, no rhonchi, no rales, no accessory muscle use Abdominal: Soft, nontender to palpation, no guarding, no appreciable organomegaly Ext: No gross muscle atrophy, no edema, no contractures Neuro: CN II-XI grossly intact, no focal neuro deficits Psych: Alert, oriented, appropriate affect Data Reviewed Today: Pertinent Labs: Potassium 4.3, creatinine 1.2, magnesium 2.3 Imaging: No new imaging Assessment and Plan: Acute colic CHF exacerbation Systolic cardiomyopathy - on Lasix 40 IV every 8 hours, monitor electrolytes and renal function - Continue telemetry - On aspirin 81 mg daily, losartan 25 daily, metoprolol 25 daily - Intake and output, daily weight - Cardiology note reviewed, cardiac cath Friday Chronic: Asthma, not in exacerbation DVT ppx: Lovenox Code status: Full code Anticipated discharge place: pending clinical course Anticipated discharge time: pending clinical course Changed obs to inpatient. Objective - Vital Signs Vital signs: Vital Signs Temp 97.9 F 02/09/24 14:39 Pulse 88 02/09/24 14:39 Resp 17 02/09/24 14:39 BP 115/68 02/09/24 14:39 Pulse Ox 98 02/09/24 14:39 FiO2 Intake & Output 02/08/24 02/09/24 02/09/24 18:59 06:59 18:59 Intake Total 1470 118 118 Output Total 1450 900 Balance 20 -782 118 Weight 112.491 kg 109.1 kg 109.1 kg Intake: Oral 1470 118 118 Output: Urine 1450 900 Other: # Voids 1 - Labs CBC & Chem 7: 02/07/24 11:18 02/09/24 08:54 Labs: Abnormal Lab Results - Last 24 Hours (Table) 02/09/24 Range/Units 08:54 BUN 23 H (7-17) mg/dL Glucose 117 H (74-99) mg/dL
[2024-02-10] MEDS: SPIRONOLACTONE 25 MG TAB PO SCH (09:55)
[2024-02-10] MEDS: DAPAGLIFLOZIN PROPANEDIOL 10 MG TABLET PO SCH (09:55)
[2024-02-10 11:25] LABS: BUN/Creat Ratio 20.18 Ratio (12.00-20.00); Blood Urea Nitrogen 22.2 mg/dL (9.0-27.0); Calcium 9.4 mg/dL (8.7-10.3); Carbon Dioxide 29.8 mmol/L (21.6-31.8); Chloride 98 mmol/L (96-109); Glucose 105 mg/dL (70-110); Magnesium 2.7 mg/dL (1.5-2.4); Potassium 4.2 mmol/L (3.5-5.5); Sodium 140 mmol/L (135-145)
--- NOTE | 2024-02-10 14:24 | P.PN ---
Subjective Progress Note Date: 02/10/24 History of present illness: This is a 53-year-old female with no significant past medical history presented to the hospital with shortness of breath for 1 to 2 weeks. Shortness of breath comes on with exertion and is relieved with rest. No lower extremity edema, PND, orthopnea. No history of coronary artery disease or prior CHF. D-dimer was elevated underwent CT of the chest that was negative for PE but revealed cardiomegaly and pulmonary artery hypertension. BNP was elevated. Patient presented with picture of new onset CHF. EKG revealed extensive ST-T wave changes of unclear significance. Patient has been started on IV Lasix, Toprol XL, losartan. Repeat lab work reveals sodium 139, potassium 4, BUN 16 creatinine 0.86. Echocardiogram reveals EF of 30 to 35% with global hypokinesia. Lexiscan Cardiolite stress test revealed abnormal ejection fraction of 13%. Diminished uptake involving the anterior wall appears predominantly fixed. No definite findings of sizable stress-induced areas of reversible ischemia. Tiny areas of reversibility involving the apex or anterior wall not entirely excluded. 02/09 Patient is seen today in follow-up. She is scheduled for cardiac catheterizati on with Dr. Oni Patel on Friday. She is currently on IV Lasix 40 mg every 8 hours. Patient's weight is down 3-1/2 kg. Blood pressure 110/72, heart rate 89, pulse ox 96% on room air. Repeat blood work reveals sodium 140, potassium 4.2, BUN 22 creatinine 1.1. Magnesium 2.7. Physical examination: Gen: This is a obese 53-year-old female in no acute distress VS: reviewed HEENT: Head is atraumatic, normocephalic. Pupils equal, round. Sclerae is anicteric. LUNGS: Clear to auscultation. No wheezes or rhonchi. No intercostal retractions. HEART: Regular rate and rhythm. No murmur. EXTREMITIES: No pedal edema. No calf tenderness. NEUROLOGICAL: Patient is awake, alert and oriented x3. Assessment: New onset CHF, systolic Cardiomyopathy of unclear etiology, rule out ischemic cardiac disease Moderate pulmonary hypertension Plan: Continue patient on aspirin 81 mg daily, Lasix 40 mg IV every 8 hours, losartan 25 mg daily, Toprol-XL 25 mg daily Monitor JEFFRY, daily weights, electrolytes and renal function Patient will be scheduled for cardiac catheterization on Friday. Nurse practitioner note has been reviewed, I agree with documented findings and plan of care. Patient was seen and examined. Objective - Vital Signs Vital signs: Vital Signs Temp 98.2 F 02/10/24 07:05 Pulse 79 02/10/24 07:05 Resp 17 02/10/24 07:05 BP 119/85 02/10/24 07:05 Pulse Ox 98 02/10/24 07:05 FiO2 Intake & Output 02/09/24 02/10/24 02/10/24 18:59 06:59 18:59 Intake Total 118 Balance 118 Weight 109 kg 108.8 kg Intake: Oral 118 Other: # Voids 3 1 - Labs CBC & Chem 7: 02/07/24 11:18 02/10/24 07:11 Labs: Abnormal Lab Results - Last 24 Hours (Table) 02/09/24 Range/Units 08:54 BUN 23 H (7-17) mg/dL Glucose 117 H (74-99) mg/dL
--- NOTE | 2024-02-10 15:22 | P.PN ---
Subjective Progress Note Date: 02/10/24 Hospital Course: 53-year-old female with history of asthma presenting with shortness of breath. In the ED, temperature was 98.4, pulse 110, respiratory rate 22, blood pressure 138/76, saturating 97% room air. EKG showed sinus tachycardia, chest x-ray shows interstitial opacities bilaterally. Chest CTA shows no evidence of PE, left-sided cardiac enlargement with pulmonary arterial hypertension and lower lung septal lines concerning for CHF. CBC unremarkable, D-dimer 1.12, potassium 4.6, creatinine 0.74, lactate 1.1, troponin negative x 2, proBNP 1700. Respiratory viral panel negative. Patient being admitted for CHF exacerbation. Cardiology consulted. Patient improving with IV diuresis. Echocardiogram shows reduced EF 30 to 35% with global hypokinesia. Lexiscan stress test showed abnormal EF of 13%, diminished uptake involving the anterior wall appears predominantly fixed. No definite findings of sizable stress- induced area of reversible ischemia, tiny area of reversibility involving the apex or anterior wall not entirely excluded. Pending cardiac cath on Friday. Subjective: Patient seen and examined at bedside. No acute events overnight. Respiratory function better. Pertinent positives and negatives as discussed above, a complete review of systems was performed and all other systems are negative. Vitals Signs Reviewed. General: Nontoxic, no distress, appears at stated age Derm: Warm, dry Head: Atraumatic, normocephalic, symmetric Eyes: EOMI, no lid lag, anicteric sclera Mouth: No lip lesion, mucus membranes moist Cardiovascular: S1S2 reg, no murmur Lungs: CTA bilateral, no rhonchi, no rales, no accessory muscle use Abdominal: Soft, nontender to palpation, no guarding, no appreciable organomegaly Ext: No gross muscle atrophy, no edema, no contractures Neuro: CN II-XI grossly intact, no focal neuro deficits Psych: Alert, oriented, appropriate affect Data Reviewed Today: Pertinent Labs: Potassium 4.2, creatinine 1.1, magnesium 2.7 Imaging: No new imaging Assessment and Plan: Acute colic CHF exacerbation Systolic cardiomyopathy - on Lasix 40 IV every 8 hours, monitor electrolytes and renal function - Continue telemetry - On aspirin 81 mg daily, losartan 25 daily, metoprolol 25 daily - Intake and output, daily weight - Cardiology note reviewed, cardiac cath tomorrow Also started on Aldactone 25 daily, Farxiga 10 daily Chronic: Asthma, not in exacerbation DVT ppx: Lovenox Code status: Full code Anticipated discharge place: pending clinical course Anticipated discharge time: pending clinical course Objective - Vital Signs Vital signs: Vital Signs Temp 97.7 F 02/10/24 14:17 Pulse 89 02/10/24 14:17 Resp 16 02/10/24 14:17 BP 110/72 02/10/24 14:17 Pulse Ox 96 02/10/24 14:17 FiO2 Intake & Output 02/09/24 02/10/24 02/10/24 18:59 06:59 18:59 Intake Total 118 0 Balance 118 0 Weight 109 kg 108.8 kg Intake: Oral 118 0 Other: # Voids 3 1 2 - Labs CBC & Chem 7: 02/07/24 11:18 02/10/24 07:11 Labs: Abnormal Lab Results - Last 24 Hours (Table) 02/10/24 Range/Units 07:11 Anion Gap 12.20 H (4.00-12.00) mmol/L BUN/Creatinine Ratio 20.18 H (12.00-20.00) Ratio Magnesium 2.7 H (1.5-2.4) mg/dL
[2024-02-10 22:40] VITALS: RESP 16
[2024-02-11] MEDS: ATORVASTATIN 80 MG TAB PO ONE (04:50)
[2024-02-11] MEDS: ASPIRIN 325 MG TAB PO ONE (04:50)
[2024-02-11 05:00] LABS: Glucose,Whole Blood 106 mg/dL (70-110)
[2024-02-11] MEDS ORDERED: fentaNYL (PF) 50 MCG/ML 2 ML AMP ONE (06:16)
[2024-02-11] MEDS: LIDOCAINE 2% (PF) 20 MG/ML 2 ML VIAL SQ ONE (06:56)
[2024-02-11] MEDS ORDERED: HEPARIN SODIUM,PORCINE (1 ML) 2,500 UNIT in SODIUM CHLORIDE 0.9% 250 ML IRRIGATION PRN (07:00)
[2024-02-11] MEDS ORDERED: HEPARIN SODIUM,PORCINE 10,000 UNIT in SODIUM CHLORIDE 0.9% 1,000 ML IRRIGATION PRN (07:00)
[2024-02-11] MEDS: HEPARIN SODIUM 1,000 UN/ML (10ML VL) IVP ONE (07:01)
[2024-02-11] MEDS: fentaNYL (PF) 50 MCG/1 ML VIAL IVP ONE (07:02)
[2024-02-11] MEDS: MIDAZOLAM 2 MG/2 ML VIAL IVP ONE (07:02)
[2024-02-11] MEDS: IOPAMIDOL-370 100ML BTL INTRATHECA ONE (07:14)
[2024-02-11] MEDS: SODIUM CHLORIDE 0.9% 1,000 ML IV ONE (07:14)
--- NOTE | 2024-02-11 07:47 | CC ---
CARDIAC CATHETERIZATION REPORT INDICATION: Cardiomyopathy with new onset systolic heart failure. PROCEDURE NOTE: After obtaining informed consent, left heart catheterization and coronary angiogram were performed via the right radial artery using standard Jose catheters. The patient tolerated the procedure well without any obvious immediate complications. The patient received moderate conscious sedation. Total sedation time was 13 minutes. Right radial artery access was obtained using Seldinger technique, 6-[place] sheath was placed. Catheters and wires were floated into the ascending aorta under fluoroscopic guidance. The patient received verapamil and heparin per protocol. FINDINGS: 1. HEMODYNAMICS: Left ventricular end-diastolic pressure is 8 to 10 mm. There is no significant gradient across the aortic valve. 2. Left ventriculogram: Left ventriculogram was not performed. 3. ANGIOGRAPHIC DATA: a.Left main coronary artery: Left main coronary artery is a normal-sized vessel and is free of stenosis. Divides into left anterior descending coronary artery and circumflex coronary artery. b.LAD and its branches, circumflex coronary artery and its branches are free of significant stenosis. c.Right coronary artery is a large dominant vessel and is free of significant disease. CONCLUSIONS: 1. Normal coronary arteries. 2. Nonischemic cardiomyopathy. PLAN: The patient's management is going to be in the form of aggressive therapy for underlying cardiomyopathy and congestive heart failure and I will repeat an echo on her [address] to see if her LV function would improve with medical therapy and assess the need for device therapy at that time. MMDANIEL / BRIANNE: [id number] /
[2024-02-11] MEDS: FUROSEMIDE 40 MG TAB PO SCH (08:54)
[2024-02-11 10:25] LABS: Basophils # (A) 0.06 X 10*3/uL (0.00-0.10); Eosinophils % (A) 1.7 %; HCT 42.4 % (37.2-46.3); HGB 13.7 g/dL (12.0-15.0); Lymphocytes # (A) 1.17 X 10*3/uL (0.90-5.00); Lymphocytes % (A) 20.2 %; MCH 28.4 pg (27.0-32.0); MCHC 32.3 g/dL (32.0-37.0); MCV 87.8 FL (80.0-97.0); Mean Platelet Volume 10.3 FL (9.5-12.2); Monocytes # (A) 0.66 X 10*3/uL (0.20-1.00); Monocytes % (A) 11.4 %; NRBC Per 100 WBC 0 X 10*3/uL (0.00-0.01); Neutrophils # (A) 3.79 X 10*3/uL (1.80-7.70); Neutrophils % (A) 65.4 %; Platelet Count 249 X 10*3/uL (140-440); RBC 4.83 X 10*6/uL (4.10-5.20); RDW 13.9 % (11.5-14.5)
--- NOTE | 2024-02-11 10:52 | P.DS ---
Providers Date of admission: 02/09/24 15:53 Expected date of discharge: 02/11/24 Attending physician: Rica Prado MD Consults: 02/07/24 14:04 Consult Physician Routine Consulting Provider: Gumaro Patel Consult Reason/Comments: new onset chf Do you want consulting provider notified?: Yes Primary care physician: Ruth [facility] Hospital Course: Discharge Diagnosis: Acute systolic heart failure exacerbation Nonischemic cardiomyopathy Moderate pulmonary hypertension History of asthma, not in acute exacerbation Hospital Course: Patient is a 53-year-old female with a past medical history of asthma. She presented to the emergency department on 02/07/2024 with a chief complaint of shortness of breath progressively worsening x 1 week and worsened with exertion along with orthopnea. Upon arrival to the emergency department, patient underwent evaluation. Vital signs showing blood pressure 138/76, heart rate 110, respiratory rate 22, temp 98.4 F, and SpO2 of 97% on room air. EKG was completed showing sinus tachycardia at 105 bpm with occasional PVC. Chest x-ray completed showing mild cardiomegaly with interstitial density and concerns of pulmonary vascular congestion consistent with CHF. Labs completed and reviewed. CBC was unremarkable. BMP showing mild hyperchloremia with chloride of 108 otherwise normal findings. Lactic acid normal findings at 1.1. Magnesium 1.9. Liver profile unremarkable. Troponin was less than 0.012 and proBNP was elevated at 1750. Coagulation profile revealing an elevated D-dimer of 1.12. CTA chest was completed negative for pulmonary emboli showing left-sided cardiac enlargement with pulmonary arterial hypertension consistent for mild CHF with pulmonary vascular congestion. Patient was admitted under our services with consultation to cardiology. Echocardiogram was completed showing a severely impaired EF of 30 to 35% with global hypokinesia. Lexiscan stress test completed reporting an EF of 13% and diminished uptake involving the anterior wall appearing predominantly fixed with no definite findings of sizable stress- induced area of reversible ischemia and tiny area of reversibility involving the apex of the anterior wall not entirely excluded. On 02/11/2024, patient underwent cardiac catheterization showing normal coronary arteries and nonischemic cardiomyopathy. Cardiology starting patient on maximized heart failure regimen with Aldactone 25 mg daily, aspirin 81 mg daily, Lasix 40 mg daily, metoprolol 25 mg daily, and Jardiance 10 mg daily. Physical exam: Vital signs reviewed and stable. General: Nontoxic, no distress and appears stated age. Derm: Skin warm and dry, normal coloration for ethnicity. Head: Atraumatic, normocephalic and symmetric. Eyes: EOMs intact, no lid lag, and anicteric sclera Mouth: no lip lesions, mucus membranes moist Cardiovascular: regular rate and rhythm with normal S1S2, no murmur, positive posterior tibial pulses bilaterally, and cap refill < 2 seconds. Lungs: Respirations even, regular, and unlabored on room air. Lungs CTA bilaterally, no rhonchi, no rales, no wheezing, and no accessory muscle usage. Abdominal: soft, nontender to palpation, no guarding, no appreciable organomegaly Ext: ROM intact. No gross muscle atrophy, no edema, no contractures Neuro: Speech clear, face symmetrical and CN II-XII grossly intact with no noted focal neuro deficits Psych: Alert and oriented to person, place, time, and situation. Appropriate and pleasant affect. A total of 34 minutes of time were spent preparing this complex discharge summary. Pt was discharged on 02/11/2024 at 10:56 AM Patient was seen independently by Nurse Practitioner. This document was prepared using [employer] dictation software. Please allow for errors in accessibility lift technician while rare they do occur. I reviewed the documentation as provided by the LOL[employer] above, who is the original author of this note. I agree with the documented assessment and plan, with the following changes: none Patient Condition at Discharge: Stable Plan - Discharge Summary Discharge Rx Participant: Yes New Discharge Prescriptions: New Spironolactone [Aldactone] 25 mg PO DAILY 30 Days #30 tab Aspirin 81 mg PO DAILY 30 Days #30 tab Furosemide [Lasix] 40 mg PO DAILY 30 Days #30 tab polyethylene glycoL 3350 [Miralax] 17 gm PO DAILY 30 Days #30 packet Nitroglycerin Sl Tabs [Nitrostat] 0.4 mg SUBLINGUAL Q5M PRN #30 tab PRN Reason: Chest Pain Metoprolol Succinate (ER) [Toprol XL] 25 mg PO DAILY 30 Days #30 tab Empagliflozin [Jardiance] 10 mg PO DAILY #30 tablet Continue Montelukast [Singulair] 10 mg PO DAILY Cetirizine HCl [Zyrtec] 10 mg PO HS Albuterol Inhaler [Ventolin Hfa Inhaler] 2 puff INHALATION RT-Q4H PRN PRN Reason: Shortness Of Breath Cyclobenzaprine [Flexeril] 10 mg PO Q8H PRN PRN Reason: Muscle Spasm Discharge Medication List Albuterol Inhaler [Ventolin Hfa Inhaler] 2 puff INHALATION RT-Q4H PRN 02/07/24 [History] Cetirizine HCl [Zyrtec] 10 mg PO HS 02/07/24 [History] Cyclobenzaprine [Flexeril] 10 mg PO Q8H PRN 02/07/24 [History] Montelukast [Singulair] 10 mg PO DAILY 02/07/24 [History] Aspirin 81 mg PO DAILY 30 Days #30 tab 02/11/24 [Rx] Empagliflozin [Jardiance] 10 mg PO DAILY #30 tablet 02/11/24 [Rx] Furosemide [Lasix] 40 mg PO DAILY 30 Days #30 tab 02/11/24 [Rx] Metoprolol Succinate (ER) [Toprol XL] 25 mg PO DAILY 30 Days #30 tab 02/11/24 [Rx] Nitroglycerin Sl Tabs [Nitrostat] 0.4 mg SUBLINGUAL Q5M PRN #30 tab 02/11/24 [Rx] Spironolactone [Aldactone] 25 mg PO DAILY 30 Days #30 tab 02/11/24 [Rx] polyethylene glycoL 3350 [Miralax] 17 gm PO DAILY 30 Days #30 packet 02/11/24 [Rx] Follow up Appointment(s)/Referral(s): Ruth Winston MD [Primary Care Provider] - 1-2 days Gumaro Patel MD [STAFF PHYSICIAN] - 4 Weeks (office will call ) Patient Instructions/Handouts: Heart Failure (DC), After Radial Heart Catheterization (GEN) Activity/Diet/Wound Care/Special Instructions: Activity: As tolerated. Take breaks as needed. Diet: Heart healthy and carb consistent diet. Avoid salts, or foods with hidden salts such as canned or boxed foods and frozen dinners. Extra salt makes your heart work harder and traps the fluid in your body for longer. Special Instructions: Take all of your medications as directed and remember to keep all of your doctor's appointments and follow-up as needed. Thank you for allowing us to participate in your care, it was truly a pleasure having you for our patient!!! . Discharge Disposition: HOME SELF-CARE
[2024-02-11 11:36] VITALS: TEMP 98.1
[2024-02-11 12:29] VITALS: BP 115/64; PULSE 87
[2024-02-11 13:01] LABS: Magnesium 2.6 mg/dL (1.5-2.4)
[2024-02-11 13:08] LABS: Blood Urea Nitrogen 21.2 mg/dL (9.0-27.0); Calcium 9.2 mg/dL (8.7-10.3); Carbon Dioxide 24.2 mmol/L (21.6-31.8); Chloride 103 mmol/L (96-109); Glucose 110 mg/dL (70-110); Sodium 142 mmol/L (135-145)
--- NOTE | 2024-02-11 14:40 | P.PN ---
Subjective Progress Note Date: 02/11/24 History of present illness: This is a 53-year-old female with no significant past medical history presented to the hospital with shortness of breath for 1 to 2 weeks. Shortness of breath comes on with exertion and is relieved with rest. No lower extremity edema, PND, orthopnea. No history of coronary artery disease or prior CHF. D-dimer was elevated underwent CT of the chest that was negative for PE but revealed cardiomegaly and pulmonary artery hypertension. BNP was elevated. Patient presented with picture of new onset CHF. EKG revealed extensive ST-T wave changes of unclear significance. Patient has been started on IV Lasix, Toprol XL, losartan. Repeat lab work reveals sodium 139, potassium 4, BUN 16 creatinine 0.86. Echocardiogram reveals EF of 30 to 35% with global hypokinesia. Lexiscan Cardiolite stress test revealed abnormal ejection fraction of 13%. Diminished uptake involving the anterior wall appears predominantly fixed. No definite findings of sizable stress-induced areas of reversible ischemia. Tiny areas of reversibility involving the apex or anterior wall not entirely excluded. 02/09 Patient is seen today in follow-up. She is scheduled for cardiac catheterizati on with Dr. Oni Patel on Friday. She is currently on IV Lasix 40 mg every 8 hours. Patient's weight is down 3-1/2 kg. Blood pressure 110/72, heart rate 89, pulse ox 96% on room air. Repeat blood work reveals sodium 140, potassium 4.2, BUN 22 creatinine 1.1. Magnesium 2.7. 02/10 Patient underwent cardiac catheterization that showed normal coronary arteries. Patient was started on Farxiga this morning but insurance would not not cover, this was changed to Jardiance. Patient continues to deny any chest pain, no shortness of breath, no lower extremity edema. Physical examination: Gen: This is a obese 53-year-old female in no acute distress VS: reviewed HEENT: Head is atraumatic, normocephalic. Pupils equal, round. Sclerae is anicteric. LUNGS: Clear to auscultation. No wheezes or rhonchi. No intercostal retractions. HEART: Regular rate and rhythm. No murmur. EXTREMITIES: No pedal edema. No calf tenderness. NEUROLOGICAL: Patient is awake, alert and oriented x3. Assessment: New onset CHF, systolic Cardiomyopathy of unclear etiology, rule out ischemic cardiac disease Moderate pulmonary hypertension Plan: Continue patient on aspirin 81 mg daily, Lasix 40 mg oral daily, losartan 25 mg daily, Toprol-XL 25 mg daily Continue patient on Jardiance 10 mg daily Patient is cleared for discharge from cardiology and will follow-up with Dr. Oni Patel in 1 month. Nurse practitioner note has been reviewed, I agree with documented findings and plan of care. Patient was seen and examined. Objective - Vital Signs Vital signs: Vital Signs Temp 97.6 F 02/11/24 02:00 Pulse 69 02/11/24 02:00 Resp 16 02/11/24 02:00 BP 101/64 02/11/24 02:00 Pulse Ox 97 02/11/24 02:00 FiO2 Intake & Output 02/10/24 02/11/24 02/11/24 18:59 06:59 18:59 Intake Total 0 200 Balance 0 200 Weight 108.4 kg Intake: IV 200 Oral 0 Other: # Voids 3 1 - Labs CBC & Chem 7: 02/11/24 07:31 02/11/24 07:31 Labs: Abnormal Lab Results - Last 24 Hours (Table) 02/10/24 Range/Units 07:11 Anion Gap 12.20 H (4.00-12.00) mmol/L BUN/Creatinine Ratio 20.18 H (12.00-20.00) Ratio Magnesium 2.7 H (1.5-2.4) mg/dL
[2024-02-12] MEDS ORDERED: ASPIRIN 81 MG PO SCH (09:00)
== END 2024-02-11 12:55 | disposition home or self-care (01) | DRG 286 ==
LOC: EC 10:46 → 3SCARD 14:04 → 6NMEDSUR 02-08 15:59 → OBSVTOIN 02-09 15:53
PROVIDERS: ADMIT Family Medicine; ATTEND Family Medicine
PROC: B2111ZZ Fluoroscopy of Multiple Coronary Arteries using Low Osmolar Contrast (ICD-10-PCS; principal; 2024-02-11 07:30)
PROC: 4A023N7 Measurement of Cardiac Sampling and Pressure, Left Heart, Percutaneous Approach (ICD-10-PCS; principal; 2024-02-11 07:30)
DX: I11.0 Hypertensive heart disease with heart failure (principal); I50.23 Acute on chronic systolic (congestive) heart failure; I42.8 Other cardiomyopathies; J45.909 Unspecified asthma, uncomplicated; I27.20 Pulmonary hypertension, unspecified; I49.3 Ventricular premature depolarization; E66.9 Obesity, unspecified; Z68.38 Body mass index [BMI] 38.0-38.9, adult; E87.8 Other disorders of electrolyte and fluid balance, not elsewhere classified; Z79.899 Other long term (current) drug therapy; Z79.82 Long term (current) use of aspirin; Z79.51 Long term (current) use of inhaled steroids
CPT/HCPCS: 36415; 71046; 71275; 78452; 80048; 80053; 83605; 83735; 83880; 84484; 85025; 85379; 85610; 85730; 87636; 93005; 93017; 93306; 93458; 96374; 96376; 99285

== ENCOUNTER → 2024-08-20 | Outpatient (CLI) | payer BC ==
[2024-08-20 15:30] LABS: BUN/Creat Ratio 23.12 Ratio (12.00-20.00); Blood Urea Nitrogen 18.5 mg/dL (9.0-27.0); Calcium 9.6 mg/dL (8.7-10.3); Carbon Dioxide 29.2 mmol/L (21.6-31.8); Chloride 102 mmol/L (96-109); Glucose 101 mg/dL (70-110); Potassium 4.8 mmol/L (3.5-5.5); Sodium 141 mmol/L (135-145)
[2024-08-20 21:42] LABS: NT-Pro-B-Type Natriuretic Pept 227 pg/mL (0-125)
== END | disposition home or self-care (01) ==
LOC: LABWHC1 08:58
PROVIDERS: ATTEND Internal Medicine Cardiovascular Disease
DX: I50.22 Chronic systolic (congestive) heart failure (principal)
CPT/HCPCS: 36415; 80048; 83880

== ENCOUNTER → 2025-03-28 | Outpatient (CLI) | payer BC ==
[2025-03-28 16:44] LABS: BUN/Creat Ratio 18.78 Ratio (12.00-20.00); Blood Urea Nitrogen 16.9 mg/dL (9.0-27.0); Calcium 9.4 mg/dL (8.7-10.3); Carbon Dioxide 25.3 mmol/L (21.6-31.8); Chloride 101 mmol/L (96-109); Glucose 101 mg/dL (70-110); Potassium 4.1 mmol/L (3.5-5.5); Sodium 139 mmol/L (135-145)
[2025-03-28 16:58] LABS: NT-Pro-B-Type Natriuretic Pept 240 pg/mL (0-125)
== END | disposition home or self-care (01) ==
LOC: LABWHC1 11:55
PROVIDERS: ATTEND Internal Medicine Cardiovascular Disease
DX: I42.9 Cardiomyopathy, unspecified (principal)
CPT/HCPCS: 36415; 80048; 83880